=== PATIENT | male | born 2000 | race Caucasian/White ===

== ENCOUNTER 2022-02-12 06:35 | Emergency (ER) | payer OTHER ==
[2022-02-12] MEDS ORDERED: IBUPROFEN 200 MG TAB PO ONE (07:28)
[2022-02-12 07:43] LABS: Absolute Lymphocytes (CBC) 1.6 K/uL (0.7-4.9); Hematocrit 46.4 % (39.6-49.0); Lymphocytes % 28.7 % (15.3-44.8); MPV 8.3 fL (7.6-11.3); RBC Red Blood Cell Count 5.14 M/uL (4.33-5.43)
[2022-02-12 08:07] LABS: Potassium 3.6 mmol/L (3.5-5.1); Troponin High Sensitivity 4.6 pg/mL (<58.9)
--- NOTE | 2022-02-12 09:01 | RAD REPORT ---
EXAM DESCRIPTION: RAD - Chest Single View - 02/12/2022 8:43 am CLINICAL HISTORY: CHEST PAIN Chest pain. COMPARISON: No comparisons FINDINGS: Portable technique limits examination quality. The lungs are grossly clear. The heart is normal in size. No displaced fractures. IMPRESSION: No acute intrathoracic process suspected.
--- NOTE | 2022-02-12 09:13 | EDPHYS ---
Physician Documentation [facility] Name: Artem Young Age: 21 yrs Sex: Male : 2000 Arrival Date: 02/12/2022 Time: 06:39 Bed 19 Private MD: HIRAM Physician Fuad Gooden HPI: 02/12 08:06 This 21 yrs old Male presents to ER via Ambulatory with complaints of Chest Pain. kdr 08:06 The patient or guardian reports chest pain that is located primarily in the anterior kdr chest wall, left. The pain radiates to the left arm, the left shoulder, the left scapula. Associated signs and symptoms: The patient has no apparent associated signs or symptoms. The chest pain is described as aching, sharp. Duration: The patient or guardian reports multiple episodes, that are intermittent, that wax and wane, The pain the patient is having is primarily associated with movement of the upper torso and left upper extremity. Especially when he brings his hands up over his head. Modifying factors: The symptoms are alleviated by remaining still, the symptoms are aggravated by activity, breathing, deep breath, movement, twisting torso. Severity of pain: At its worst the pain was mild in the emergency department the pain is unchanged. The patient has not experienced similar symptoms in the past. The patient has not recently seen a physician. Patient noted that after surfing several days ago that he had left chest discomfort as well as shoulder and scapula pain. Yesterday he was working out and the pain got worse when he was using his upper extremities. Since the pain has been ongoing and persistent, he decided to get checked out. He does have a family history of cardiac disease but not until May also have been in their 50s or 60s. Historical: - Allergies: 06:56 Omnicef; kd3 - Home Meds: 06:56 None [Active]; kd3 - PMHx: 06:56 None; kd3 - PSHx: 06:56 wisdom teeth removal; kd3 - Immunization history:: Adult Immunizations up to date. - Social history:: Smoking status: unknown. ROS: 08:06 Constitutional: Negative for fever, chills, and weight loss, Eyes: Negative for injury, kdr pain, redness, and discharge, ENT: Negative for injury, pain, and discharge, Neck: Negative for injury, pain, and swelling, Respiratory: Negative for shortness of breath, cough, wheezing, and pleuritic chest pain, Abdomen/GI: Negative for abdominal pain, nausea, vomiting, diarrhea, and constipation, Back: Negative for injury and pain, : Negative for injury, bleeding, discharge, and swelling, MS/Extremity: Negative for injury and deformity, Skin: Negative for injury, rash, and discoloration, Neuro: Negative for headache, weakness, numbness, tingling, and seizure activity. Psych: Negative for depression, anxiety, suicide ideation, homicidal ideation, and hallucinations, Allergy/Immunology: Negative for hives, rash, and allergies, Endocrine: Negative for neck swelling, polydipsia, polyuria, polyphagia, and marked weight changes, Hematologic/Lymphatic: Negative for swollen nodes, abnormal bleeding, and unusual bruising. 08:06 Cardiovascular: Positive for chest pain, Negative for edema, orthopnea, palpitations, paroxysmal nocturnal dyspnea. Exam: 08:06 Constitutional: This is a well developed, well nourished patient who is awake, alert, kdr and in no acute distress. Head/Face: Normocephalic, atraumatic. Eyes: Pupils equal round and reactive to light, extra-ocular motions intact. Lids and lashes normal. Conjunctiva and sclera are non-icteric and not injected. Cornea within normal limits. Periorbital areas with no swelling, redness, or edema. Neck: Trachea midline, no thyromegaly or masses palpated, and no cervical lymphadenopathy. Supple, full range of motion without nuchal rigidity, or vertebral point tenderness. No Meningismus. Chest/axilla: Normal chest wall appearance and motion. Nontender with no deformity. No lesions are appreciated. Cardiovascular: Regular rate and rhythm with a normal S1 and S2. No gallops, murmurs, or rubs. Normal PMI, no JVD. No pulse deficits. Respiratory: Lungs have equal breath sounds bilaterally, clear to auscultation and percussion. No rales, rhonchi or wheezes noted. No increased work of breathing, no retractions or nasal flaring. Abdomen/GI: Soft, non-tender, with normal bowel sounds. No distension or tympany. No guarding or rebound. No evidence of tenderness throughout. Back: No spinal tenderness. No costovertebral tenderness. Full range of motion. Skin: Warm, dry with normal turgor. Normal color with no rashes, no lesions, and no evidence of cellulitis. MS/ Extremity: Pulses equal, no cyanosis. Neurovascular intact. Full, normal range of motion. Neuro: Awake and alert, GCS 15, oriented to person, place, time, and situation. Cranial nerves II-XII grossly intact. Motor strength 5/5 in all extremities. Sensory grossly intact. Cerebellar exam normal. Normal gait. Psych: Awake, alert, with orientation to person, place and time. Behavior, mood, and affect are within normal limits. 08:06 Chest/axilla: Does have some mild discomfort with movement of her extremities and torso. Otherwise he is in no acute distress. 08:10 ECG was reviewed by the Attending Physician. [facility] Vital Signs: 06:51 BP 115 / 71; Pulse 71; Resp 10; Temp 98.5; Pulse Ox 99% on R/A; Weight 86.18 kg; Height kd3 6 ft. (182.88 cm); Pain 4/10; 09:42 BP 118 / 64; Pulse 70; Resp 18; Pulse Ox 100% ; Pain 0/10; jh6 06:51 Body Mass Index 25.77 (86.18 kg, 182.88 cm) kd3 MDM: 08:06 Data reviewed: vital signs, nurses notes, lab test result(s), radiologic studies. kdr Counseling: I had a detailed discussion with the patient and/or guardian regarding: the historical points, exam findings, and any diagnostic results supporting the discharge/admit diagnosis, lab results, radiology results. 09:12 Patient medically screened. [facility] 02/12 07:16 Order name: Basic Metabolic Panel; Complete Time: 09:08 [facility] 02/12 07:16 Order name: CBC with Diff; Complete Time: 09:08 [facility] 02/12 07:16 Order name: Troponin HS; Complete Time: 09:08 [facility] 02/12 07:16 Order name: XRAY Chest (1 view); Complete Time: 09:08 [facility] 02/12 07:16 Order name: EKG; Complete Time: 07:17 [facility] 02/12 07:16 Order name: Cardiac monitoring; Complete Time: 07:39 [facility] 02/12 07:16 Order name: EKG - Nurse/Tech; Complete Time: 07:39 [facility] 02/12 07:16 Order name: IV Saline Lock; Complete Time: 07:39 kdr 02/12 07:16 Order name: Labs collected and sent; Complete Time: :39 kdr 02/12 07:16 Order name: O2 Per Protocol; Complete Time: kdr 02/12 07:16 Order name: O2 Sat Monitoring; Complete Time: :39 kdr EC:10 Rate is 65 beats/min. Rhythm is irregular, Sinus arrythmia with PACs. QRS [place] is kdr Normal. PA interval is normal. QRS interval is normal. Clinical impression: NSR w/ Non-specific ST/T Changes and Sinus arrythmia. Administered Medications: :24 Drug: Ibuprofen 800 mg Route: PO; jh6 Disposition Summary: 02/12/22 09:12 Discharge Ordered Location: Home kdr Problem: new kdr Symptoms: have improved kdr Condition: Stable kdr Diagnosis - Chest pain, unspecified kdr - Cardiac arrhythmia, unspecified - Sinus kdr Followup: kdr - With: Private Physician - When: 2 - 3 days - Reason: If symptoms return, Further diagnostic work-up, Recheck today's complaints, Continuance of care, Re-evaluation by your physician Discharge Instructions: - Discharge Summary Sheet kdr - Nonspecific Chest Pain, Adult, [id number] kdr Forms: - Medication Reconciliation Form kdr - Thank You Letter kdr Signatures: Dispatcher [employer] Fuad Amato MD MD kdr Blanka An, RN RN kd3 Kaela Caceres RN RN jh6
--- NOTE | 2022-02-12 09:13 | ER ---
Nurse's Notes [facility] Name: Artem Young Age: 21 yrs Sex: Male : 2000 Arrival Date: 02/12/2022 Time: 06:39 Bed 19 Private MD: Diagnosis: Chest pain, unspecified;Cardiac arrhythmia, unspecified-Sinus Presentation: 02/12 06:51 Chief complaint: Patient states: i was surfing a few days ago and i felt really sore in kd3 my chest. it hurts when i move my arm in a kaw and it feel like something is pulling. no radiation to the neck or back. Coronavirus screen: Vaccine status: Patient reports being unvaccinated. Ebola Screen: No symptoms or risks identified at this time. Initial Sepsis Screen: Does the patient meet any 2 criteria? No. Patient's initial sepsis screen is negative. Does the patient have a suspected source of infection? No. Patient's initial sepsis screen is negative. Risk Assessment: Do you want to hurt yourself or someone else? Patient reports no desire to harm self or others. Onset of symptoms was February 10, 2022. 06:51 Method Of Arrival: Ambulatory kd3 06:51 Acuity: WING 3 kd3 Triage Assessment: 06:56 General: Appears in no apparent distress. Behavior is calm, cooperative. Pain: kd3 Complains of pain in chest, left shoulder. Cardiovascular: Patient's skin is warm and dry. Rhythm is regular. Historical: - Allergies: 06:56 Omnicef; kd3 - Home Meds: 06:56 None [Active]; kd3 - PMHx: 06:56 None; kd3 - PSHx: 06:56 wisdom teeth removal; kd3 - Immunization history:: Adult Immunizations up to date. - Social history:: Smoking status: unknown. Screenin:59 Abuse screen: Denies threats or abuse. Denies injuries from another. Nutritional kd3 screening: No deficits noted. Tuberculosis screening: No symptoms or risk factors identified. Fall Risk None identified. Assessment: 07:00 Pain: Pain does not radiate. Pain began gradually. kd3 09:30 Reassessment: Patient is alert, oriented x 3, equal unlabored respirations, skin jh6 warm/dry/pink. Patient denies pain at this time. Patient states feeling better. Pain: Denies pain. Vital Signs: 06:51 BP 115 / 71; Pulse 71; Resp 10; Temp 98.5; Pulse Ox 99% on R/A; Weight 86.18 kg; Height kd3 6 ft. (182.88 cm); Pain 4/10; 09:42 BP 118 / 64; Pulse 70; Resp 18; Pulse Ox 100% ; Pain 0/10; jh6 06:51 Body Mass Index 25.77 (86.18 kg, 182.88 cm) kd3 ED Course: 06:39 Patient arrived in ED. bp1 06:41 Blanka An, RN is Primary Nurse. kd3 06:56 Triage completed. kd3 06:56 Arm band placed on right wrist. kd3 06:59 Patient has correct armband on for positive identification. Client placed on continuous kd3 cardiac and pulse oximetry monitoring. NIBP monitoring applied. automatic punch press operator on. Pulse ox on. NIBP on. 06:59 No provider procedures requiring assistance completed. Patient maintains SpO2 kd3 saturation greater than 95% on room air. 07:01 Fuad Gooden MD is Attending Physician. kdr 07:33 Initial lab(s) drawn, by nv, held in ED. Inserted saline lock: 18 gauge in left tm3 antecubital area, using aseptic technique. 07:33 Inserted. tm3 08:45 XRAY Chest (1 view) In Process Unspecified. EDMS Administered Medications: 07:24 Drug: Ibuprofen 800 mg Route: PO; 6 Medication: 07:00 VIS not applicable for this client. kd3 Outcome: 09:12 Discharge ordered by . kdr 09:41 Discharged to home ambulatory. 6 09:41 Condition: good 09:41 Discharge instructions given to patient, family, Instructed on discharge instructions, Demonstrated understanding of instructions. 09:42 Patient left the ED. 6 Signatures: Dispatcher [employer] EDMS Constantine Norman 3 Fuad Gooden MD MD kdr Emily Sanders bp1 Blanka An, RN RN 3 Kaela Caceres RN RN 6
[2022-02-12 09:52] VITALS: TEMP 98.5
[2022-02-12 09:53] VITALS: BP 118/64; O2SAT 100
--- NOTE | 2022-02-14 12:22 | EKG ---
Test Date: 2022-02-12 Test Time: 07:25:55 [employer]: NGOZI MEASUREMENT RESULTS: Intervals: Rate: 65 MN: 142 QRSD: 88 QT: 376 QTc: 391 [place]: P: 53 MN: 142 QRS: 79 T: 44 INTERPRETIVE STATEMENTS: Sinus rhythm with marked sinus arrhythmia Otherwise normal ECG Compared to ECG 06/06/2010 10:23:55 ST (T wave) deviation no longer present Electronically Signed On 02-14-22 12:17:09 CDT by Rashad Calle
== END 2022-02-12 09:42 | disposition home or self-care (01) ==
LOC: ER 06:35
DX: I49.8 Other specified cardiac arrhythmias (principal); Z88.1 Allergy status to other antibiotic agents; R07.9 Chest pain, unspecified
CPT/HCPCS: 36415; 71045; 80048; 84484; 85025; 93005; 99285

== ENCOUNTER 2024-12-02 07:57 | Emergency (ER) | payer OTHER ==
[2024-12-02] MEDS ORDERED: ONDANSETRON 4 MG/2 ML VIAL ONE (08:23)
[2024-12-02] MEDS ORDERED: NA CHLORIDE 0.9% 1,000 ML ONE (08:24)
[2024-12-02] MEDS ORDERED: FAMOTIDINE 20 MG/2 ML VIAL IV ONE (08:24)
[2024-12-02 08:46] LABS: Absolute Eosinophils 0.1 K/uL (0-0.5); Absolute Lymphocytes (CBC) 0.3 K/uL (0.7-4.9); Absolute Monocytes 0.6 K/uL (0.1-1.3); Absolute Neutrophil 9.4 K/uL (1.8-8.0); Eosinophils % 0.7 % (0-4.4); Hematocrit 45.1 % (39.6-49.0); Hemoglobin 15.8 g/dL (13.6-17.9); Lymphocytes % 2.5 % (15.3-44.8); MCH 30.5 pg (27.0-35.0); MCHC 35.1 g/dL (32.0-36.0); MCV 87.1 fL (80-100); MPV 7.8 fL (7.6-11.3); Monocytes % 5.3 % (3.3-12.3); Neutrophils % 91.5 % (41.7-73.7); Platelets 194 thou/uL (152-406); RBC Red Blood Cell Count 5.18 M/uL (4.33-5.43); Red Cell Distribution Width 12.6 % (12.1-15.2)
[2024-12-02 09:03] LABS: Albumin 4.1 g/dL (3.4-5.0); Albumin/Globulin Ratio 1.1 (1.1-1.8); Anion Gap 11.9 mEq/L (5.0-15.0); Globulin 3.8 g/dL (2.3-3.5); Potassium 3.9 mEq/L (3.5-5.1); Protein, Total 7.9 g/dL (6.4-8.2)
[2024-12-02 09:14] LABS: Influenza A Ag Negative; Influenza B Ag Negative; SARS-CoV-2 Antigen Rapid Res Negative (Negative)
--- NOTE | 2024-12-02 09:31 | ER ---
Nurse's Notes [facility] Name: Artem Young Age: 24 yrs Sex: Male : 2000 Arrival Date: 12/02/2024 Time: 07:57 Bed 14 Private MD: Diagnosis: Nausea with vomiting, unspecified;Diarrhea, unspecified Presentation: 12/02 08:10 Chief complaint: N/V/D, upper abdominal pain and chills since 0300 today. Not hb tolerating fluids. Coronavirus screen: Client presents with at least one sign or symptom that may indicate coronavirus-19. Provider contacted for isolation considerations. Ebola Screen: No symptoms or risks identified at this time. Initial Sepsis Screen: Does the patient meet any 2 criteria? No. Patient's initial sepsis screen is negative. Does the patient have a suspected source of infection? No. Patient's initial sepsis screen is negative. Risk Assessment: Do you want to hurt yourself or someone else? Patient reports no desire to harm self or others. Onset of symptoms was December 02, 2024. 08:10 Method Of Arrival: Ambulatory 08:10 Acuity: WING 3 hb Historical: - Allergies: 08:11 Omnicef; hb - Home Meds: 08:11 None [Active]; hb - PMHx: 08:11 None; hb - PSHx: 08:11 wisdom teeth removal; hb - Immunization history:: Adult Immunizations up to date. Screenin:[address] [facility] ED Fall Risk Assessment (Adult) History of falling in the last 3 months, kc6 including since admission No falls in past 3 months (0 pts) Confusion or Disorientation No (0 pts) Intoxicated or Sedated No (0 pts) Impaired Gait No (0 pts) Mobility Assist Device Used No (0 pt) Altered Elimination No (0 pt) Score/Fall Risk Level 0 - 2 = Low Risk Oriented to surroundings, Maintained a safe environment, Educated pt \T\ family on fall prevention, incl call for assistance when getting out of bed. Abuse screen: Denies threats or abuse. Denies injuries from another. Nutritional screening: No deficits noted. Tuberculosis screening: No symptoms or risk factors identified. Assessment: 08:45 General: Appears in no apparent distress. comfortable, well groomed, well developed, kc6 Behavior is calm, cooperative, appropriate for age. Pain: Complains of pain in abdomen. Neuro: Level of Consciousness is awake, alert, obeys commands, Oriented to person, place, time, situation, Appropriate for age. Cardiovascular: Capillary refill < 3 seconds. Respiratory: Airway is patent Trachea midline Respiratory effort is even, unlabored, Respiratory pattern is regular, symmetrical. GI: Abdomen is flat, non-distended, Bowel sounds present X 4 quads. Reports diarrhea, intolerance of fluids, intolerance of food, nausea, vomiting. : No signs and/or symptoms were reported regarding the genitourinary system. EENT: No signs and/or symptoms were reported regarding the EENT system. Derm: No signs and/or symptoms reported regarding the dermatologic system. Skin is intact, is healthy with good turgor, Skin is pink, warm \T\ dry. Musculoskeletal: No signs and/or symptoms reported regarding the musculoskeletal system. Circulation, motion, and sensation intact. Range of motion: intact in all extremities. 09:46 Reassessment: Patient appears in no apparent distress at this time. No changes from kc6 previously documented assessment. Patient and/or family updated on plan of care and expected duration. Pain level reassessed. Patient is alert, oriented x 3, equal unlabored respirations, skin warm/dry/pink. d/c pending completion of IV fluids Patient states feeling better. Patient states symptoms have improved. 10:24 Reassessment: Patient appears in no apparent distress at this time. No changes from kc6 previously documented assessment. Patient and/or family updated on plan of care and expected duration. Pain level reassessed. Patient is alert, oriented x 3, equal unlabored respirations, skin warm/dry/pink. Vital Signs: 08:10 BP 123 / 70; Pulse 121; Resp 16; Temp 99; Pulse Ox 100% on R/A; Pain 7/10; hb 08:45 BP 118 / 73; Pulse 95; Resp 18 S; Pulse Ox 100% on R/A; kc6 10:24 BP 112 / 56; Pulse 100; Resp 18 S; Pulse Ox 98% on R/A; kc6 08:10 Pain Scale: Adult hb ED Course: 07:59 Patient arrived in ED. im 08:01 Maximino Henriquez DO is Attending Physician. ms3 08:11 Triage completed. hb 08:11 Arm band placed on. hb 08:12 Stephie Yusuf, RN is Primary Nurse. kc6 08:41 CBC with Diff Sent. cc6 08:41 CMP Sent. cc6 08:41 Lipase Sent. cc6 08:41 COVID-19 Ag + Flu A+B Ag Sent. cc6 08:41 Inserted saline lock: 20 gauge in right antecubital area, using aseptic technique. cc6 Blood collected. Flushed with 10 mL NS Missed attempt(s): 20 gauge in right antecubital area. Bleeding controlled, band aid applied, catheter tip intact. 08:45 Patient has correct armband on for positive identification. Placed in gown. Bed in low kc6 position. Call light in reach. Side rails up X 1. Pulse ox on. NIBP on. Door closed. Noise minimized. Lights dimmed. Warm blanket given. Pillow given. Verbal reassurance given. 08:45 Patient maintains SpO2 saturation greater than 95% on room air. kc6 09:30 Vladimir Gupta DO is Referral Physician. ms3 10:40 No provider procedures requiring assistance completed. IV discontinued, intact, kc6 bleeding controlled, No redness/swelling at site. Pressure dressing applied. Administered Medications: 08:44 Drug: Famotidine IVP 20 mg IVP once; dilute with 10 mL 0.9% NaCl; give over 2 minutes kc6 Route: IVP; Site: right antecubital; 09:46 Follow up: Response: No adverse reaction kc6 08:44 Drug: Ondansetron IVP 4 mg IVP once; over 2 minutes Route: IVP; Site: right antecubital;kc6 09:46 Follow up: Response: No adverse reaction; Nausea is decreased; Vomiting decreased kc6 08:44 Drug: NS 0.9% IV 1000 ml IV at 1 bolus Per protocol; to be given as a bolus over 60 kc6 minutes Route: IV; Rate: 1 bolus; Site: right antecubital; 10:25 Follow up: Response: No adverse reaction; IV Status: Completed infusion; IV Intake: kc6 1000ml Medication: 10:40 VIS not applicable for this client. kc6 Intake: 10:25 IV: 1000ml; Total: 1000ml. kc6 Outcome: 09:30 Discharge ordered by . ms3 10:40 Discharged to home ambulatory, kc6 10:40 Condition: improved 10:40 Discharge instructions given to patient, Instructed on discharge instructions, follow up and referral plans. medication usage, Demonstrated understanding of instructions, follow-up care, medications, Prescriptions given X 1, 10:41 Patient left the ED. kc6 Signatures: Nicki Nick, RN RN Maximino Henriquez DO DO ms3 Stephie Yusuf RN RN kc6 Jenn Read Cassandra cc6
--- NOTE | 2024-12-02 09:31 | EDPHYS ---
Physician Documentation [facility] Name: Artem Young Age: 24 yrs Sex: Male : 2000 Arrival Date: 12/02/2024 Time: 07:57 Bed 14 Private MD: ED Physician Maximino Henriquez HPI: 12/02 09:30 This 24 yrs old Male presents to ER via Ambulatory with complaints of Flu Symptoms. ms3 09:30 24-year-old male with no past medical history presents to the emergency department for ms3 nausea, vomiting, diarrhea, chills that began at 3 AM. Patient's girlfriend presenting to the emergency department with similar symptoms. Patient states his discomfort is 7/10. Patient has taken Pepto-Bismol without relief.. Historical: - Allergies: 08:11 Omnicef; hb - Home Meds: 08:11 None [Active]; hb - PMHx: 08:11 None; hb - PSHx: 08:11 wisdom teeth removal; hb - Immunization history:: Adult Immunizations up to date. ROS: 09:30 Constitutional: Negative for fever, and chills. Cardiovascular: Negative for chest ms3 pain, and palpitations. Respiratory: Negative for shortness of breath, cough, wheezing, and pleuritic chest pain, 09:30 MS/Extremity: Negative for injury and deformity, Skin: Negative for injury, rash, and discoloration, 09:30 Abdomen/GI: Positive for nausea, vomiting, and diarrhea, Exam: 09:30 Constitutional: This is a well developed, well nourished patient who is awake, alert, ms3 and in no acute distress. Chest/axilla: Normal chest wall appearance and motion. Nontender with no deformity. Respiratory: Lungs have equal breath sounds bilaterally, clear to auscultation and percussion. No rales, rhonchi or wheezes noted. No increased work of breathing, no retractions or nasal flaring. Abdomen/GI: Soft, non-tender, with normal bowel sounds. No distension or tympany. No guarding or rebound. No evidence of tenderness throughout. Skin: Warm, dry with normal turgor. Normal color with no rashes, no lesions, and no evidence of cellulitis. MS/ Extremity: Pulses equal, no cyanosis. Neurovascular intact. Full, normal range of motion. 09:30 Cardiovascular: Rate: tachycardic, Rhythm: regular, Pulses: no pulse deficits are ms3 appreciated, Vital Signs: 08:10 BP 123 / 70; Pulse 121; Resp 16; Temp 99; Pulse Ox 100% on R/A; Pain 7/10; hb 08:45 BP 118 / 73; Pulse 95; Resp 18 S; Pulse Ox 100% on R/A; kc6 10:24 BP 112 / 56; Pulse 100; Resp 18 S; Pulse Ox 98% on R/A; kc6 08:10 Pain Scale: Adult hb MDM: 08:13 Medical Screening Exam initiated ms3 09:30 Differential diagnosis: gastritis, non-specific abd pain, Gastroenteritis versus ms3 foodborne illness. Data reviewed: vital signs, nurses notes, lab test result(s), and as a result, I will discharge patient. I considered the following discharge prescriptions or medication management in the emergency department Medications were administered in the Emergency Department. See MAR. Counseling: I had a detailed discussion with the patient and/or guardian regarding the historical points, exam findings, and any diagnostic results supporting the discharge/admit diagnosis, lab results, the need for outpatient follow up, to return to the emergency department if symptoms worsen or persist or if there are any questions or concerns that arise at home. Special discussion: I discussed with the patient/guardian in detail that at this point there is no indication for admission to the hospital. It is understood, however, that if the symptoms persist or worsen the patient needs to return immediately for re-evaluation. ED course: Patient's labs reassuring, heart rate improved. On reevaluation patient's improved, alert and oriented x 4, no apparent distress, nontoxic-appearing, speaking full sentences, tolerating p.o. Patient to follow-up with primary care physician in 2 to 3 days. Patient understands and agrees with plan. All questions were answered. Return precautions discussed to include inability to tolerate p.o., worsening symptoms, or any other concerns.. 12/02 08:01 Order name: COVID-19 Ag + Flu A+B Ag; Complete Time: 09:22 ms3 12/02 08:13 Order name: CBC with Diff; Complete Time: 16:45 ms3 12/02 08:13 Order name: CMP; Complete Time: 09:22 ms3 12/02 08:13 Order name: Lipase; Complete Time: 09:22 ms3 12/02 10:25 Order name: CBC Smear Scan; Complete Time: 16:45 EDMS 12/02 08:13 Order name: IV Saline Lock; Complete Time: 08:41 ms3 12/02 08:13 Order name: Labs collected and sent; Complete Time: 08:41 ms3 Administered Medications: 08:44 Drug: Famotidine IVP 20 mg IVP once; dilute with 10 mL 0.9% NaCl; give over 2 minutes kc6 Route: IVP; Site: right antecubital; 09:46 Follow up: Response: No adverse reaction kc6 08:44 Drug: Ondansetron IVP 4 mg IVP once; over 2 minutes Route: IVP; Site: right antecubital;kc6 09:46 Follow up: Response: No adverse reaction; Nausea is decreased; Vomiting decreased kc6 08:44 Drug: NS 0.9% IV 1000 ml IV at 1 bolus Per protocol; to be given as a bolus over 60 kc6 minutes Route: IV; Rate: 1 bolus; Site: right antecubital; 10:25 Follow up: Response: No adverse reaction; IV Status: Completed infusion; IV Intake: kc6 1000ml Disposition Summary: 12/02/24 09:30 Discharge Ordered Notes: Location: Home ms3 Condition: Stable ms3 Diagnosis - Nausea with vomiting, unspecified ms3 - Diarrhea, unspecified ms3 Followup: ms3 - With: Vladimir Gupta DO - When: 2 - 3 days - Reason: Recheck today's complaints Discharge Instructions: - Discharge Summary Sheet ms3 - Food Choices to Help Relieve Diarrhea, Adult ms3 - Diarrhea, Adult ms3 - Nausea and Vomiting, Adult ms3 Forms: - Medication Reconciliation Form ms3 - Antibiotic Education ms3 - Prescription Opioid Use ms3 - Patient Portal Instructions ms3 - Leadership Thank You Letter ms3 Prescriptions: - ondansetron 4 mg Oral Tablet,disintegrating - take 1 tablet ORAL route every 8 hours; 15 tablet; Refills: 0, Product ms3 Selection Permitted Signatures: Dispatcher [employer] Nicki Benitez RN RN hb Sims, Marcus, DO DO ms3 Stephie Yusuf RN RN kc6 Corrections: (The following items were deleted from the chart) 08:14 08:14 CBC+H.LAB.BRZ ordered. EDMS EDMS 08:14 08:14 COMPREHENSIVE METABOLIC PANEL+C.LAB.BRZ ordered. EDMS EDMS 08:14 08:14 LIPASE+C.LAB.BRZ ordered. EDMS EDMS 18:56 09:30 Constitutional: This is a well developed, well nourished patient who is awake, ms3 alert, and in no acute distress. Chest/axilla: Normal chest wall appearance and motion. Nontender with no deformity. Cardiovascular: Regular rate and rhythm with a normal S1 and S2. No gallops, murmurs, or rubs. Normal PMI, no JVD. No pulse deficits. Respiratory: Lungs have equal breath sounds bilaterally, clear to auscultation and percussion. No rales, rhonchi or wheezes noted. No increased work of breathing, no retractions or nasal flaring. Abdomen/GI: Soft, non-tender, with normal bowel sounds. No distension or tympany. No guarding or rebound. No evidence of tenderness throughout. Skin: Warm, dry with normal turgor. Normal color with no rashes, no lesions, and no evidence of cellulitis. MS/ Extremity: Pulses equal, no cyanosis. Neurovascular intact. Full, normal range of motion. ms3
[2024-12-02 10:25] LABS: Blood Morphology Comment NOT SEEN (NOT SEEN); Platelet Estimate ADEQ; White Blood Cell Scan OK (OK)
[2024-12-02 11:05] VITALS: TEMP 99
[2024-12-02 11:17] VITALS: BP 112/56; O2SAT 98
== END 2024-12-02 10:41 | disposition home or self-care (01) ==
LOC: ER 07:57
DX: R11.2 Nausea with vomiting, unspecified (principal); R19.7 Diarrhea, unspecified; Z11.52 Encounter for screening for COVID-19
CPT/HCPCS: 96361; 85025; 36415; 83690; 80053; 96375; 96374; 99284; 87428; J2405; J7030